=== PATIENT | female | born 1955 | race Hispanic/Latino ===

== ENCOUNTER 2019-04-09 23:38 | Emergency (ER) | payer SELFPAY ==
[2019-04-09] MEDS ORDERED: Metoclopramide HCl 10 MG/2 ML VIAL ONE (23:56)
[2019-04-09] MEDS ORDERED: Acetaminophen 500 MG TAB ONE (23:56)
[2019-04-09] MEDS ORDERED: diphenhydrAMINE 50 MG/ML VIAL ONE (23:56)
[2019-04-09 23:58] LABS: #Basophils 0.1 thou/uL (0.0-0.2); #Eosinphils 0.2 thou/uL (0.0-0.7); #Lymphocytes 4.7 thou/uL (1.20-3.40); #Monocytes 0.5 thou/uL (0.11-0.59); %Basophils 1.1 % (0.0-1.0); %Eosinophils 1.6 % (0.0-10.0); %Lymphocytes 49.7 % (21.0-51.0); %Monocytes 5.5 % (0.0-10.0); %Neutrophils 42.1 % (42.0-75.0); Hemoglobin 13.5 g/dL (12.0-16.0); Mean Corpuscular HGB CONC 33.9 g/dL (32.0-36.0); Mean Corpuscular Hemoglobin 31.4 pg (27.0-31.0); Mean Corpuscular Volume 92.7 fL (78.0-98.0); Mean Platelet Volume 7.9 fL (7.4-10.4); Platelet Count 301 thou/uL (130-400); RBC Distribution Width 12.3 % (11.5-14.5); White Blood Cell (WBC) Count 9.5 thou/uL (4.8-10.8)
--- NOTE | 2019-04-10 | CT ---
EXAM: Brain CT scan Without contrast: HISTORY: Stroke alert, weakness COMPARISON: None FINDINGS: Atrophy and chronic white matter ischemic change. No focal mass or midline shift. No intra or extra-axial hemorrhage. The visualized sinuses and mastoids are clear of acute process. IMPRESSION: No mass or bleed or other significant acute intracranial process. Findings were discussed with the ordering physician at 11:55 PM CODE CR
[2019-04-10 00:05] LABS: INR-International Normal Ratio 0.8; PTT 24.8 SEC (22.9-36.1); Prothrombin Time 11.3 SEC (12.0-14.7)
[2019-04-10 00:10] LABS: Phosphorus 3.4 mg/dL (2.3-4.7)
[2019-04-10 00:14] LABS: ALT (SGPT) 36 U/L (8-55); AST (SGOT) 27 U/L (5-34); Albumin 4.5 g/dL (3.4-4.8); Alkaline Phosphatase 73 U/L (40-110); Anion Gap 17 mmol/L (10-20); BUN (Urea Nitrogen) 21 mg/dL (9.8-20.1); Bilirubin, Total 0.2 mg/dL (0.2-1.2); CK (CPK) 208 U/L (29-168); Calc. Creatinine Clearance 0 mL/min (70-130); Carbon Dioxide 24 mmol/L (23-31); Chloride 99 mmol/L (98-107); Estimated GFR-MDRD 56; Globulin 3.3 g/dL (2.4-3.5); Glucose 170 mg/dL (80-115); Magnesium 1.3 mg/dL (1.6-2.6); Potassium 3.8 mmol/L (3.5-5.1); Protein, Total 7.8 g/dL (6.0-8.3); Sodium 136 mmol/L (136-145)
[2019-04-10] MEDS ORDERED: Magnesium 2 GM/50 ML BAG (IN WATER) ONE (01:28)
== END 2019-04-10 02:42 | disposition home or self-care (01) ==
LOC: ERS 23:38
DX: I10 Essential (primary) hypertension (principal); E83.42 Hypomagnesemia; R51 Headache; E11.9 Type 2 diabetes mellitus without complications; E78.5 Hyperlipidemia, unspecified; E78.00 Pure hypercholesterolemia, unspecified; Z87.891 Personal history of nicotine dependence; Z79.84 Long term (current) use of oral hypoglycemic drugs; Z79.899 Other long term (current) drug therapy
CPT/HCPCS: 70450; 80053; 82550; 83735; 84100; 84443; 84484; 85025; 85610; 85730; 96365; 96367; 96375; J1200; J2765; J3475